=== PATIENT | male | born 1980 | race Caucasian/White ===

== ENCOUNTER 2019-02-03 02:12 | Emergency (ER) | payer SELFPAY ==
[~2019-02-03] VITALS: Ht 182.9 cm; Wt 88.5 kg
[2019-02-03] MEDS ORDERED: DEXAMETHASONE 4 MG TABLET PO ONE (02:30)
[2019-02-03] MEDS ORDERED: KETOROLAC 30 MG/ML VIAL. IM ONE (02:30)
--- NOTE | 2019-02-03 05:12 | RAD ---
INDICATION: Chest pain with history of chest compressions COMPARISON: None. TECHNIQUE: Axial CT images obtained through the chest without contrast. One or more of the following individualized dose reduction techniques were utilized for this examination: 1. Automated exposure control; 2. Adjustment of the mA and/or kV according to patient size; 3. Use of iterative reconstruction technique. FINDINGS: No evidence of pneumothorax. Tiny subpleural nodule right lung anteriorly. Limited evaluation of the mediastinum and vascular structures secondary to lack of contrast. At the partially visualized right upper abdomen there is a suspected right proximal ureter stone measuring approximately 6 mm with distention of the right renal pelvis. Suspected cystic lesion of the left kidney. Thoracic aorta partially obscured by motion but no aneurysm at visualized portion. Cannot evaluate lumen on noncontrast imaging. There are prominent thickness of the esophagus. Old appearing fracture right clavicle. Nonunion. Mild wedging of the T12 and L1 vertebral bodies. Lucency through the body of the sternum. There is a small amount of soft tissue density seen posterior to the sternal fracture measuring up to about 5 mm in thickness IMPRESSION: 1. Sternal fracture is identified with a small amount of adjacent thickening of the soft tissues which could be from a small amount of blood adjacent to this site. 2. The partially visualized upper abdomen there is a suspected right proximal ureter stone with mild right-sided hydronephrosis. 3. The wall of the esophagus is mildly prominent in thickness. Could be from lack of distention however would correlate for possible causes such as gastroesophageal reflux or esophagitis 4. Mild wedging of the T12 and L1 vertebral bodies of unknown age. Electronically signed by: Lenny Nunn MD (02/03/2019 5:09 AM) [id number]
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
[2019-02-03 06:00] VITALS: BP 137/70
[2019-02-03] MEDS ORDERED: PRED20TA PO (06:04)
[2019-02-03] MEDS ORDERED: NAPR-695 PO (06:04)
== END 2019-02-03 06:09 | disposition home or self-care (01) ==
LOC: ER 02:12
DX: S22.20XA Unspecified fracture of sternum, initial encounter for closed fracture (principal); X58.XXXA Exposure to other specified factors, initial encounter; Y93.89 Activity, other specified; Y92.89 Other specified places as the place of occurrence of the external cause; Y99.8 Other external cause status
CPT/HCPCS: 71250; 96372; 99284; J1885; J8540

== ENCOUNTER 2019-02-13 13:22 | Emergency (ER) | payer SELFPAY ==
[~2019-02-13] VITALS: Ht 182.9 cm; Wt 93.0 kg
[~2019-02-13 13:22] MED LIST: NAPR-695 PO; PRED20TA PO
[2019-02-13 13:35] VITALS: BP 130/70
[2019-02-13 13:40] LABS: BILIRUBIN,URINE NEGATIVE (NEG); CLARITY,URINE CLEAR; COLOR,URINE YELLOW; NITRITE,URINE NEGATIVE (NEG); PROTEIN,URINE NEGATIVE (NEG-TRACE); UROBILINOGEN,URINE 0.2 mg/dL (0.2 mg/dL)
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
[2019-02-13] MEDS ORDERED: IV NORMAL SALINE 1000ML BAG 1,000 ML IV ONE (14:00)
[2019-02-13] MEDS ORDERED: MORPHINE SULFATE 2 MG/ML VIAL. IV ONE (14:00)
[2019-02-13] MEDS ORDERED: ONDANSETRON PF 4 MG/2 ML VIAL. IV ONE (14:00)
[2019-02-13] MEDS ORDERED: KETOROLAC 15 MG/ML VIAL. IV ONE (14:00)
[2019-02-13 14:06] LABS: BACTERIA,URINE 0 /HPF (0-FEW); SQUAMOUS EPITHELIAL CELL,UR OCC /LPF; WBC,URINE OCC /HPF (0-4)
[2019-02-13 14:46] LABS: BASO # 0.1 x10^3/uL (0.0-0.2); BASO % 1 % (0-3); EOS # 0.1 x10^3/uL (0.0-0.7); EOS % 2 % (0-3); HEMATOCRIT 42.4 % (39.0-53.0); HEMOGLOBIN 14.4 g/dL (13.0-17.5); LYMPH # 1.8 x10^3/uL (1.0-4.8); LYMPH % 26 % (24-48); MEAN CORPUSCULAR HEMOGLOBIN 32 pg (25-35); MEAN CORPUSCULAR HGB CONC 34 g/dL (31-37); MEAN CORPUSCULAR VOLUME 95 fL (79-100); MONO # 0.8 x10^3/uL (0.0-1.1); MONO % 12 % (0-9); NEUT # 4.2 x10^3/uL (1.8-7.7); NEUT % 60 % (31-73); PLATELET COUNT 204 x10^3/uL (140-400); RED BLOOD COUNT 4.47 x10^6/uL (4.30-5.70); RED CELL DISTRIBUTION WIDTH 14.7 % (11.5-14.5)
[2019-02-13 14:58] LABS: CALCIUM 9.2 mg/dL (8.5-10.1); CREATININE 1.2 mg/dL (0.7-1.3); GFR 68.5; POTASSIUM 4.4 mmol/L (3.5-5.1)
[2019-02-13 15:03] LABS: ALBUMIN 3.3 g/dL (3.4-5.0); ALBUMIN/GLOBULIN RATIO 0.8 (1.0-1.7); TOTAL BILIRUBIN 0.3 mg/dL (0.2-1.0); TOTAL PROTEIN 7.2 g/dL (6.4-8.2)
--- NOTE | 2019-02-13 15:09 | RAD ---
EXAM: Abdomen and pelvis CT without intravenous contrast. HISTORY: Right flank pain. TECHNIQUE: Computed tomographic images of the abdomen and pelvis were obtained without contrast. Multiplanar reformatting was performed.. *One or more of the following individualized dose reduction techniques were utilized for this examination: 1. Automated exposure control. 2. Adjustment of the mA and/or kV according to patient size. 3. Use of iterative reconstruction technique. COMPARISON: None. FINDINGS: Evaluation of the lower thorax demonstrates a 3 mm nodule along the right minor fissure, likely a benign fissural lymph node. There is posterior dependent and basilar atelectasis. There is no infiltrate or pleural effusion. There is mild hepatosplenomegaly. The gallbladder, pancreas and adrenal glands are unremarkable on this noncontrast exam. There is mild right hydronephrosis secondary to a 5 mm stone within the right ureteropelvic junction. There are few additional right renal stones, the largest of which measures 1 mm within the mid zone. There is a suspected 1.8 cm cyst within the upper pole of the left kidney. There is no appendicitis. There is no bowel obstruction. There is no abnormal bowel wall thickening. The urinary bladder is unremarkable. There is a small fat-containing right inguinal hernia. There is no lymphadenopathy. There are tiny fat-containing supraumbilical and left periumbilical hernias. There is a chronic mild wedge deformity of T12. There is no suspicious osseous lesion. IMPRESSION: 1. Mild right hydronephrosis secondary to a 5 mm stone within the right ureterovesical junction. There are few punctate nonobstructing right renal stones. 2. 1.8 cm suspected left renal cyst. Renal sonography can be performed to confirm benignity. 3. Tiny fat-containing left periumbilical and supraumbilical hernias and small fat-containing right inguinal hernia. 4. Mild hepatosplenomegaly. Electronically signed by: Cami Bryan MD (02/13/2019 3:06 PM) [place] [id number]
[2019-02-13] MEDS ORDERED: ONDA4TAB12 PO (15:26)
[2019-02-13] MEDS ORDERED: TAMS0.4C97 PO (15:26)
== END 2019-02-13 16:16 | disposition home or self-care (01) ==
LOC: ER 13:22
DX: N20.0 Calculus of kidney (principal); F17.200 Nicotine dependence, unspecified, uncomplicated
CPT/HCPCS: 36415; 74176; 80053; 81001; 85025; 96374; 96375; 99285; J1885; J2270; J2405; J7030

== ENCOUNTER 2019-05-08 11:39 | Emergency (ER) | payer SELFPAY ==
[~2019-05-08] VITALS: Ht 182.9 cm; Wt 74.8 kg
[~2019-05-08 11:39] MED LIST changes: +ONDA4TAB12 PO; +TAMS0.4C97 PO
[2019-05-08 11:58] VITALS: BP 146/102
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
[2019-05-08] MEDS ORDERED: DIPHTH,PERTUSS(ACELL),TET TOX 0.5 ML DISP.SYRIN. VAX IM ONE (12:45)
[2019-05-08] MEDS ORDERED: IBUPROFEN 200 MG TABLET. PO ONE (12:45)
[2019-05-08] MEDS ORDERED: GABAPENTIN 300 MG CAPSULE. PO ONE (12:45)
== END 2019-05-08 12:57 | disposition home or self-care (01) ==
LOC: ER 11:39
DX: T33.822A Superficial frostbite of left foot, initial encounter (principal); T33.821A Superficial frostbite of right foot, initial encounter; F12.90 Cannabis use, unspecified, uncomplicated; F15.90 Other stimulant use, unspecified, uncomplicated; X31.XXXA Exposure to excessive natural cold, initial encounter; Y93.I9 Activity, other involving external motion; Y92.89 Other specified places as the place of occurrence of the external cause; Y99.8 Other external cause status
CPT/HCPCS: 90471; 90715; 99283